=== PATIENT | male | born 1940 | race Caucasian/White ===

== ENCOUNTER 2018-06-29 15:16 | Inpatient (IN) | payer MEDICARE, OTHER ==
--- NOTE | 2018-06-29 16:22 | ED ---
Complex/Multi-Sys Presentation - HPI Summary HPI Summary: Pt is a 77 y/o male who presents to the ED c/o fatigue for the past 4 weeks. He was sent here by his PCP Dr. Lawrence, who performed bloodwork and a CXR. Dr. Lawrence diagnosed with pt with bilateral PNA and requests the pts admission. Pt c/o cough, fever, diaphoresis, fatigue, generalized weakness, and feeling dehydrated. He denies any current pain. Pt had this seasons flu shot. Pt had PNA as a child. - History Of Current Complaint Chief Complaint: EDShortnessOfBreath Time Seen by Provider: 06/29/18 16:02 Hx Obtained From: Patient Onset/Duration: Gradual Onset Timing: Constant Aggravating Factor(s): Nothing Alleviating Factor(s): Nothing Associated Signs And Symptoms: Positive: Weakness, Cough, Fever, Diaphoresis - Allergies/Home Medications Allergies/Adverse Reactions: Allergies Allergy/AdvReac Type Severity Reaction Status Date / Time seasonal Allergy Mild Eyes Uncoded 06/29/18 16:41 Itchy/Swollen/Red/Watery PMH/Surg Hx/FS Hx/Imm Hx Cardiovascular History: Denies: Hx Congestive Heart Failure, Hx Hypertension History: Reports: Hx Kidney Stones Musculoskeletal History: Reports: Hx Arthritis Neurological History: Reports: Hx Seizures - Surgical History Surgery Procedure, Year, and Place: Tonsillectomy Infectious Disease History: No Infectious Disease History: Denies: Traveled Outside the [place] in Last 30 Days - Family History Known Family History: Positive: Cardiac Disease, Other - [place] - Social History Alcohol Use: Occasionally Hx Substance Use: Yes Substance Use Type: Reports: Marijuana Hx Tobacco Use: Yes Smoking Status (MU): Current Some Day Smoker Type: Cigars Review of Systems Positive: Fever, Fatigue, Skin Diaphoresis, Other - Generalized weakness, dehydration Positive: Cough All Other Systems Reviewed And Are Negative: Yes Physical Exam - Summary Physical Exam Summary: GENERAL: Patient is a well-developed and nourished M who is lying comfortable in the stretcher. Patient is not in any acute respiratory distress. HEAD AND FACE: Normocephalic EYES: PERRLA, EOMI x 2. EARS: Hearing grossly intact. MOUTH: Oropharynx within normal limits. NECK: Supple, trachea is midline, no adenopathy, no JVD, no carotid bruit. CHEST: Symmetric, no tenderness at palpation LUNGS: Clear to auscultation bilaterally. No wheezing. Crackles in bilateral bases. CVS: Regular rate and rhythm, S1 and S2 present, no murmurs or gallops appreciated. ABDOMEN: Soft, non-tender. Bowel sounds are normal. No abdominal abnormal pulsations. EXTREMITIES: Full ROM in all major joints, no edema, no cyanosis or clubbing. NEURO: Alert and oriented x 3. No acute neurological deficits. Speech is normal and follows commands. SKIN: Dry and warm Triage Information Reviewed: Yes Vital Signs On Initial Exam: Initial Vitals Temp Pulse Resp BP Pulse Ox 98.7 F 81 20 95/67 91 06/29/18 15:33 06/29/18 15:33 06/29/18 15:33 06/29/18 15:33 06/29/18 15:33 Vital Signs Reviewed: Yes Diagnostics - Vital Signs Vital Signs Temp Pulse Resp BP Pulse Ox 06/29/18 15:33 98.7 F 81 20 95/67 91 - Laboratory Result Diagrams: 06/30/18 08:00 06/30/18 08:00 Lab Statement: Any lab studies that have been ordered have been reviewed, and results considered in the medical decision making process. Complex Multi-Symp Course/Dx Course Of Treatment: Pt is a 77 y/o male who presents to the ED c/o cough, fever , diaphoresis, fatigue, generalized weakness, and feeling dehydrated. Pt was given fluids, IV Rocephin, and IV Zithromax. There was no indication for workup since pt had a workup this morning with Dr. Lawrence. Pt will be admitted with a final dx of bilateral pneumonia. Case discussed with hospitalist, Dr Bauer. I discussed results with patient. The patient agrees with this plan. - Diagnoses Provider Diagnoses: Bilateral pneumonia - Physician Notifications Discussed Care Of Patient With: Eric Bauer Time Discussed With Above Provider: 16:35 Instructed by Provider To: Admit As Inpatient Discharge - Sign-Out/Discharge Documenting (check all that apply): Patient Departure - Admit Patient Received Moderate/Deep Sedation with Procedure: No - Discharge Plan Condition: Stable Disposition: ADMITTED TO [facility] - Billing Disposition and Condition Condition: STABLE Disposition: Admitted to [facility] - Attestation Statements Document Initiated by Scribe: Yes Documenting Scribe: Danielle Graf Provider For Whom Scribe is Documenting (Include Credential): Addie Hui MD Scribe Attestation: I, Danielle Graf, scribed for Addie Hui MD on 06/30/18 at 1826. Scribe Documentation Reviewed: Yes Provider Attestation: The documentation as recorded by the scribe, Danielle Graf accurately reflects the service I personally performed and the decisions made by me, Addie uHi MD Status of Scribe Document: Viewed
[2018-06-29] MEDS ORDERED: NS 0.9% 1000 ML** 1,000 ML IV ONE (16:26)
[2018-06-29] MEDS ORDERED: Azithromycin IV(*) 500 MG in NS 0.9% 250 ML* 250 ML IVPB ONE (16:27)
[2018-06-29] MEDS ORDERED: cefTRIAXone(*) 1 GM in NS 0.9% 50 ML* 50 ML IVPB ONE (16:27)
[2018-06-29 16:55] LABS: Hematocrit 30 % (42-52); Mean Corpuscular HGB Conc 34 g/dl (31-36); Mean Corpuscular Hemoglobin 32 pg (27-31); Mean Corpuscular Volume 95 fL (80-94); Platelet Count 569 10^3/ul (150-450); Red Cell Distribution Width 14 % (10.5-15); White Blood Count 14.9 10^3/ul (3.5-10.8)
[2018-06-29 17:12] LABS: Activated Partial Thrombo Time 26.1 seconds (26.0-36.3); INR 1.11 (0.77-1.02)
[2018-06-29 17:13] LABS: Albumin/Globulin Ratio 0.8 (1-3); Calcium 8.2 mg/dL (8.6-10.3); EGFR African American 128.8 (>60); EGFR Non-African American 106.4 (>60); Globulin 3.9 g/dL (2-4); Total Bilirubin 0.4 mg/dL (0.2-1.0); Total Protein 6.9 g/dL (6.4-8.9)
[2018-06-29 17:15] LABS: Troponin I 0.03 ng/mL (<0.04)
[2018-06-29 17:34] LABS: Influenza A Molecular NEGATIVE (Negative); Influenza B Molecular NEGATIVE (Negative)
[2018-06-29 17:37] LABS: ABS Basophils 0.1 10^3/ul (0-0.2); ABS Eosinophils 0.1 10^3/ul (0-0.6); ABS Lymphocytes 1.2 10^3/ul (1.0-4.8); ABS Monocytes 1.2 10^3/ul (0-0.8); ABS Neutrophils 12.3 10^3/ul (1.5-7.7); ABS Nucleated RBC 0 10^3/ul; Lymphocyte % 8.2 %; Nucleated Red Blood Cells % 0
[2018-06-29 17:59] LABS: Potassium 4.4 mmol/L (3.5-5.0)
[2018-06-29] MEDS ORDERED: GuaiFENesin DM* 5 ML UDC PO PRN (18:37)
[2018-06-29] MEDS ORDERED: Acetaminophen TAB* 325 MG PO PRN (18:38)
[2018-06-29 18:46] LABS: C Reactive Protein 179.76 mg/L (<8.01)
--- NOTE | 2018-06-29 19:32 | HP ---
HISTORY AND PHYSICAL: DATE OF ADMISSION: 06/29/18 ADMITTING PROVIDER: Dr. Eric Bauer. PRIMARY CARE PHYSICIAN: Dr. Antonio Lawrence. CHIEF COMPLAINT: Fevers, generalized fatigue, productive cough, loss of appetite, night sweats, headache. HISTORY OF PRESENT ILLNESS: Codey Maloney is a 77-year-old male with past medical history of seizure disorder, who 4 weeks ago developed cold-like symptoms with a cough productive of phlegm. He lost his appetite and has lost approximately 8 pounds over that time period. He has felt extremely weak. He has been mostly sitting in the chair or lying in bed - even standing to brush his teeth exhausts him, whereas at baseline he walks "very fast" 45 minutes a day, 6 days a week with 3 weightlifting sessions weekly. He denies any chest pain. Denies shortness of breath per se. Does have some discomfort with deep breaths. He has had a fever of 102 four days ago. He is having frequent night sweats. He followed up finally with his primary care provider, Dr. Antonio Lawrence , who was concerned he was way off his baseline (as has known him for 20 years) , did outpatient labs which showed leukocytosis and chest x-ray concerning for bibasilar pneumonia and was referred to the hospital for further evaluation. Here, he again had leukocytosis of 14,900, some mild transaminitis, BNP of 116, influenza swabs were negative, and thrombocytosis of 569 and was referred to the hospitalist service for admission. He has had a colonoscopy last approximately 6 years ago, which did show polyps, and he has been having what sounds like Cologuard since then. PAST MEDICAL HISTORY: Seizure disorder, on Dilantin and phenytoin for 40 years with no seizures since 2 grand mal seizures at that time; hyperlipidemia. FAMILY HISTORY: His father at age 81 of lymphoma/leukemia. Mother at age 94 with dementia. SOCIAL HISTORY: The patient is a former professor at [employer]. He was a cigar smoker for 20 years total, quit a few years ago. He estimates about 2 cigars a day over those 20 years. He drinks 2 to 2-1/2 cocktails every 2 weeks. Does not admit to any drug use. REVIEW OF SYSTEMS: A complete 14-point review of systems negative except as per HPI. He has a mild headache. Denies any nausea or vomiting. No abdominal pain. No skin rashes. No vision changes or neck stiffness. No recent travel. Denies any lower extremity edema or calf tenderness. PHYSICAL EXAMINATION GENERAL APPEARANCE: No acute distress. VITAL SIGNS: Temperature 98.7, heart rate 70s, respiratory rate between 10 and 29, satting 93% to 95% on room air, blood pressure 122/65. HEENT: Normocephalic, atraumatic. Pupils are equal, round, and reactive to light. Extraocular motions intact. No scleral icterus. Moist mucous membranes. LUNGS: Clear to auscultation except for fine crackles at the bilateral bases. No wheezing or rhonchi. CARDIOVASCULAR: Regular rate and rhythm. No murmurs, rubs, or gallops. ABDOMEN: Soft, nontender, nondistended. EXTREMITIES: Warm and well perfused. Trace edema bilaterally. NEURO: Cranial nerves II through XII intact. Moving all extremities. SKIN: No lesions. No rashes. DIAGNOSTIC STUDIES/LAB DATA: White count 14.9, hemoglobin 10.0, hematocrit 30, platelets 569. INR 1.11. Sodium 134, potassium 4.4, chloride 100, carbon dioxide 28, BUN 18, creatinine 0.72, glucose 106. Lactic acid 0.9. AST 83, ALT 100, alk phos 228. Troponin 0.03, BNP 116. Albumin 3.0. Serology: Influenza A and B negative. Imaging: Chest x-ray from outpatient prior to admission, findings consistent with right basilar pneumonia and possible left basilar pneumonia. ASSESSMENT AND PLAN: Codey Maloney is a 77-year-old male with past medical history of seizure disorder, presenting with 4 weeks of generalized weakness, cold- like symptoms, and fever of 102 four days ago, presenting with leukocytosis and imaging concerning for bilateral basilar pneumonia. He has been started on ceftriaxone and azithromycin for community-acquired pneumonia in the emergency room. Continue that, get a sputum culture, follow up blood cultures, Strep pneumoniae and Legionella urinary antigens. Does attest to some urinary frequency, but no dysuria. We will get a urinalysis and follow up the urine culture. He is being admitted to observation status. Continue his antiseizure medications and rosuvastatin. I am adding on a CRP. He is anemic with slight macrocytosis. Reports he has been given B12 injections and then pills without improvement as an outpatient. We do not have any of those labs here, although methylmalonic acid was 0.18 on 02/05/18. We will request further lab records from Dr. Lawrence's office. We will get Physical Therapy to see him. He is actually no CPR, but do intubate and medical surrogate is his , Laisha Maloney. He can eat a heart-healthy diet. [id number]/[facility] #: [id number] MTDD
[2018-06-29] MEDS ORDERED: guaiFENesin ER TAB 600 MG PO SCH (21:00)
[2018-06-29] MEDS: PHENobarbital TAB(*) 100 MG PO SCH (23:10)
[2018-06-29] MEDS: guaiFENesin ER TAB 600 MG PO PRN (23:10)
[2018-06-29] MEDS: Melatonin 3 MG TAB PO PRN (23:10)
[2018-06-29] MEDS: Atorvastatin* 20 MG TAB PO SCH (23:10)
[2018-06-29] MEDS: PHENYTOIN 100 MG PO SCH (23:10)
[2018-06-30] MEDS: Cholecalciferol TAB* 400 UNIT PO SCH (08:33)
[2018-06-30] MEDS: Ascorbic Acid TAB* 500 MG PO SCH (08:33)
[2018-06-30 09:00] LABS: ABS Basophils 0 10^3/ul (0-0.2); ABS Eosinophils 0.1 10^3/ul (0-0.6); ABS Lymphocytes 1.2 10^3/ul (1.0-4.8); ABS Monocytes 0.9 10^3/ul (0-0.8); ABS Neutrophils 7.7 10^3/ul (1.5-7.7); ABS Nucleated RBC 0 10^3/ul; Hematocrit 27 % (42-52); Hemoglobin 9.1 g/dl (14.0-18.0); Lymphocyte % 12.3 %; Mean Corpuscular HGB Conc 34 g/dl (31-36); Mean Corpuscular Hemoglobin 33 pg (27-31); Mean Corpuscular Volume 95 fL (80-94); Mean Platelet Volume 7.8 fL (7.4-10.4); Nucleated Red Blood Cells % 0; Platelet Count 495 10^3/ul (150-450); Red Cell Distribution Width 13 % (10.5-15); White Blood Count 9.9 10^3/ul (3.5-10.8)
[2018-06-30 09:16] LABS: BUN/Creatinine Ratio 19.7 (8-20); EGFR African American 142.4 (>60); EGFR Non-African American 117.7 (>60); Potassium 4.1 mmol/L (3.5-5.0)
--- NOTE | 2018-06-30 13:36 | PN ---
Subjective Date of Service: 06/30/18 Interval History: Pt is admitted for bilateral basilar pneumonia being treated with Ceftriaxone, Azithromycin. Pt states that he is feeling better today, stating that this is the first time that he has felt hungry in approximately 4 weeks. Over last 4 weeks, pt states that he has experienced night sweats, weakness, fatigue, and 8 # weight loss. He states that his cough has decreased since admission, but he is still producing sputum. Positive for subjective fevers, although none documented. Denies CP, SOB, abd pain, n/v/d/c, extremity pain. Denies swollen glands. Objective Active Medications: Acetaminophen (Tylenol Tab*) 650 mg PO Q6H PRN Ascorbic Acid (Vitamin C Tab*) 500 mg PO DAILY AYLIN Atorvastatin Calcium (Lipitor*) 20 mg PO BEDTIME AYLIN; Protocol Cetirizine HCl (Zyrtec*) 10 mg PO QPM AYLIN; Protocol Cholecalciferol (Vitamin D Tab*) 400 unit PO DAILY AYLIN Guaifenesin (Mucinex*) 600 mg PO BID PRN Guaifenesin/Dextromethorphan (Robitussin Dm*) 5 ml PO Q6H PRN Ceftriaxone Sodium 1 gm/ (Sodium Chloride) 50 mls @ 200 mls/hr IVPB Q24H AYLIN Azithromycin 500 mg/ Sodium (Chloride) 250 mls @ 250 mls/hr IVPB Q24H AYLIN Melatonin (Melatonin) 3 mg PO BEDTIME PRN Phenobarbital (Phenobarbital Tab(*)) 100 mg PO 2000 AYLIN Phenytoin Sodium (Dilantin Cap(*)) 200 mg PO BEDTIME AYLIN Vital Signs: Temp Pulse Resp BP Pulse Ox 98.4 F 66 16 118/58 95 06/30/18 11:46 06/30/18 11:46 06/30/18 11:46 06/30/18 11:46 06/30/18 11:46 Oxygen Devices in Use Now: None Appearance: Pt is sitting up in bed. He is well developed, well nourished, thin white male who does not appear ill and is in no acute distress. Eyes: No Scleral Icterus, PERRLA Ears/Nose/Mouth/Throat: NL Teeth, Lips, Gums, Clear Oropharnyx, Mucous Membranes Moist Neck: NL Appearance and Movements; NL JVP, Trachea Midline, No Thyroid Enlargement, Masses Respiratory: Symmetrical Chest Expansion and Respiratory Effort, Clear to Auscultation Cardiovascular: NL Sounds; No Murmurs; No JVD, RRR, No Edema Abdominal: - - Abdomen is firm, nontender, without distention. There are 2 prominent palpable masses in RUQ and LUQ that do not change size with valsalva. Lymphatic: No Cervical Adenopathy, No Auricular Adenopathy Extremities: No Edema, No Clubbing, Cyanosis Neurological: Alert and Oriented x 3 Result Diagrams: 06/30/18 08:00 06/30/18 08:00 Microbiology and Other Data: Microbiology 06/29/18 16:55 Influenza Types A,B Antigen - Final Nasal Specimen received for Influenza A/B Molecular testing Assess/Plan/Problems-Billing Assessment: Pt is a 77yom with PMHx seizure disorder and HLD who is admitted to the hospital for bibasilar pneumonia. - Patient Problems (1) Bilateral pneumonia Comment: -No documented fevers, decreased cough, increased appetite -Urine for legionella, strep pneumo ordered -Continue treatment with ceftriaxone, azithromycin -Continue symptomatic treatment (2) Abnormal blood cell count Comment: -Thrombocytosis, anemia -Consulted Dr. Newton (3) Abdominal mass Comment: -Palpable abdominal abnormality, elevated LFTs -CT CAP with contrast ordered (4) DVT prophylaxis Comment: -Heparin ordered (5) Full code status Status and Disposition: Inpatient. Discharge when medically stable.
[2018-06-30] MEDS: cefTRIAXone(*) 1 GM in NS 0.9% 50 ML* 50 ML IVPB SCH (16:13)
[2018-06-30] MEDS: Azithromycin IV(*) 500 MG in NS 0.9% 250 ML* 250 ML IVPB SCH (16:49)
[2018-06-30] MEDS: Cetirizine* 10 MG TAB PO SCH (16:51)
[2018-06-30] MEDS ORDERED: Iohexol 300* (CONTRAST) 10 ML SDV IV ONE (19:00)
[2018-06-30] MEDS: Atorvastatin* 20 MG TAB PO SCH (22:09)
[2018-06-30] MEDS: Heparin VIAL(*) 5000 UNITS/ML VIAL (FIVE THOUSAND) SUBCUT SCH (22:10)
[2018-06-30] MEDS: PHENobarbital TAB(*) 100 MG PO SCH (22:10)
[2018-06-30] MEDS: PHENYTOIN 100 MG PO SCH (22:13)
[2018-06-30] MEDS: guaiFENesin ER TAB 600 MG PO PRN (22:28)
--- NOTE | 2018-07-01 01:45 | CONS ---
CC: Dr. Antonio Lawrence; Dr. Newton * MEDICAL ONCOLOGY/HEMATOLOGY CONSULTATION NOTE: DATE OF CONSULT: 06/30/18 REASON FOR CONSULT: Night sweats, weight loss, anemia, and thrombocythemia. HISTORY OF PRESENT ILLNESS: Mr. Maloney is a 77-year-old male who reports approximately a 4-week history of progressive symptoms. He has developed drenching night sweats to the point that he needs to put towels down on his bed. He has had fevers as high as 102 intermittently over this period of time. His appetite has been extremely poor. He has had early satiety and about a 8- pound weight loss in 4 weeks. Whereas previously, he was extremely active, weight lifting several times per week, and walking at a fast clip almost every day for almost an hour. He recently has had difficulty doing any activities. He gets winded and fatigued even standing for short periods of time. He was seen at [facility] and found to have an elevated white count and a chest x-ray concerning for bibasilar pneumonia. Because of this, he was sent to emergency room for further workup. He was admitted by the hospitalist service on 06/29/18. Laboratory studies on admission included a white count of 14,900, H and H 30/10, platelet count 569,000. Chemistry studies were significant for mildly elevated LFTs and AST of 83, ALT 100, alk phos 228. Serology was negative for influenza A and influenza B. A chest x-ray revealed right basilar pneumonia and possible left basilar pneumonia as well. To this point, cultures have been negative. He was started empirically on antibiotics at the time of admission. Currently being treated with ceftriaxone 1 g daily and azithromycin 500 mg daily. He reports since admission very little change in his overall condition. PAST MEDICAL HISTORY: No hypertension, diabetes, [place], or CVA. History of distant seizure disorder, having had 2 episodes of seizures in his life, most recently at 40 years ago while in [place] and has been on Dilantin at low dose since. No further seizures since placed on Dilantin. Hyperlipidemia. Hospitalization for kidney stones in the past without need for surgery. No surgeries. MEDICATIONS: Medications at the time of admission included only: 1. Dilantin 200 mg a day. 2. Atorvastatin. Current medications include: 1. Ceftriaxone and azithromycin as discussed above. 2. Robitussin DM p.r.n. 3. Tylenol p.r.n. 4. Atorvastatin. 5. Phenobarb 100 mg at h.s. 6. Guaifenesin 600 mg b.i.d. p.r.n. 7. Melatonin 3 mg at h.s. p.r.n. 8. Ascorbic acid 500 mg daily. 9. Cholecalciferol 400 mg daily. 10. Cetirizine 10 mg q.8 hours p.r.n. 11. Heparin 5000 units subcutaneous q.8 hours. FAMILY HISTORY: Father at 81 of some type of lymphoma or leukemia. Paternal grandfather of unknown type of cancer in his late 60s. Cousin with brain cancer. Mother at 94 with dementia. Cardiac issues in multiple family members including 3 half brothers having had CABGs and lots of other cardiac issues on his mother's side. 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 He has been retired for approximately 6 years. Cigars for 20 years, quitting years ago, 2 cigars per day for over 20 years. Alcohol, 2 to 3 cocktails every couple of weeks. Lives with his . His children and grandchildren live next door and are essentially part of the larger household. REVIEW OF SYSTEMS: Rare headaches. No significant nausea or vomiting. Appetite has been poor and early satiety as noted above. No significant complaints of pain in the abdomen or in the extremities or back. No significant neurologic complaints. No significant changes in bowel or bladder habits. No significant heart burn or reflux. PHYSICAL EXAM: A 77-year-old male in no acute distress. Vital Signs: Blood pressure 133/68, pulse 62, currently afebrile, having had no fevers higher than 99.3 since admission. HEENT: PERRL, EOMI. No erythema or exudates. Moist mucous membranes. No scleral icterus. No palpable cervical or supraclavicular adenopathy. Shotty bilateral right greater than left axillary adenopathy up to approximately 1 cm. No inguinal adenopathy. Lungs: Clear. Heart: Regular rate and rhythm without murmurs, rubs, or gallops. Abdomen: Soft, nontender without masses, guarding, or rebound. Liver is slightly prominent. There is no splenomegaly. Extremities: No clubbing, cyanosis, or edema. Back: No CVA or spinal tenderness. Neurologic Exam: Cranial nerves II through XII are intact. Motor is 5/5. There are no focal deficits. DIAGNOSTIC STUDIES/LAB DATA: Laboratory studies on admission as discussed above. Since admission, his white count has dropped to 9,900, H and H is currently 27/9.1 and slightly lower following hydration. Platelet count of 495, 000. Differential is mostly neutrophils. Chemistry studies: Sodium 136, potassium 4.1, chloride 102, bicarb 27, BUN 15, creatinine 0.66, glucose 97. AST 83, ALT 100 without previous comparisons available, alk phos of 228. Dilantin level when most recently checked in December was 5.4 on his current dosing. IMPRESSION: A 77-year-old male with documented recent pneumonia. He has had symptoms over the past 4 weeks preceding diagnosis of pneumonia suspicious for either malignancy or prior infection. These include drenching night sweats requiring some towels on his bed, fever to 102, 8-pound weight loss over 4-week period, early satiety, and extreme fatigue. On physical exam, there is no obvious pathologic adenopathy or splenomegaly. His LFTs are abnormal. He does have significant anemia along with thrombocytosis. CT scan of the chest, abdomen and pelvis has been ordered given his symptoms. This would be suspicious for development of some type of lymphoma or other potential malignancies. Once results are available from the CT scan, further recommendations will follow. If he persists with anemia and thrombocytosis, it would important to obtain prior labs from Dr. Lawrence's office to see if these are new. LDH has been added along with uric acid and serum protein electrophoresis to his current laboratory orders. [id number]/[facility] #: [id number] [facility]
[2018-07-01] MEDS: Heparin VIAL(*) 5000 UNITS/ML VIAL (FIVE THOUSAND) SUBCUT SCH ×3 (05:47→22:34)
[2018-07-01 06:22] LABS: ABS Basophils 0 10^3/ul (0-0.2); ABS Eosinophils 0.1 10^3/ul (0-0.6); ABS Lymphocytes 1.4 10^3/ul (1.0-4.8); ABS Monocytes 0.7 10^3/ul (0-0.8); ABS Neutrophils 7.3 10^3/ul (1.5-7.7); ABS Nucleated RBC 0 10^3/ul; Hematocrit 30 % (42-52); Hemoglobin 10.2 g/dl (14.0-18.0); Lymphocyte % 14.4 %; Mean Corpuscular HGB Conc 34 g/dl (31-36); Mean Corpuscular Hemoglobin 32 pg (27-31); Mean Corpuscular Volume 95 fL (80-94); Mean Platelet Volume 7.7 fL (7.4-10.4); Nucleated Red Blood Cells % 0.1; Platelet Count 565 10^3/ul (150-450); Red Blood Count 3.19 10^6/ul (4.00-5.40); Red Cell Distribution Width 14 % (10.5-15); White Blood Count 9.6 10^3/ul (3.5-10.8)
[2018-07-01 06:46] LABS: ALT 72 U/L (7-52); AST 47 U/L (13-39); Albumin 2.7 g/dL (3.2-5.2); Albumin/Globulin Ratio 0.8 (1-3); Alkaline Phosphatase 198 U/L (34-104); Anion Gap 7 mmol/L (2-11); BUN/Creatinine Ratio 17.6 (8-20); Blood Urea Nitrogen 12 mg/dL (6-24); CO2 Carbon Dioxide 29 mmol/L (22-32); Calcium 8.3 mg/dL (8.6-10.3); Chloride 101 mmol/L (101-111); EGFR African American 137.6 (>60); EGFR Non-African American 113.7 (>60); Globulin 3.5 g/dL (2-4); Glucose 102 mg/dL (70-100); Sodium 137 mmol/L (135-145); Total Protein 6.2 g/dL (6.4-8.9); Uric Acid 3.8 mg/dL (4.4-7.6)
[2018-07-01 07:10] LABS: LDH 127 U/L (140-271)
[2018-07-01] MEDS: Cholecalciferol TAB* 400 UNIT PO SCH (08:41)
[2018-07-01] MEDS: Ascorbic Acid TAB* 500 MG PO SCH (08:41)
[2018-07-01] MEDS ORDERED: NS 0.9% 1000 ML** 1,000 ML IV SCH ×2 (12:15)
--- NOTE | 2018-07-01 14:21 | PN ---
Subjective Date of Service: 07/01/18 Interval History: Pt is feeling better today. He continues to have a productive cough. He states that he has only had one bout of night sweats since admission, which occurred yesterday morning. He has been eating more and has been drinking, but is not pushing fluids. He admits to having more energy and is looking forward to taking a walk this afternoon. Urine output has not increased or decreased from his baseline. He denies CP, SOB, abd pain, n/v/d/c, extremity pain, calf tenderness, swelling. Objective Active Medications: Acetaminophen (Tylenol Tab*) 650 mg PO Q6H PRN Ascorbic Acid (Vitamin C Tab*) 500 mg PO DAILY AYLIN Atorvastatin Calcium (Lipitor*) 20 mg PO BEDTIME AYLIN; Protocol Cetirizine HCl (Zyrtec*) 10 mg PO QPM AYLIN; Protocol Cholecalciferol (Vitamin D Tab*) 400 unit PO DAILY AYLIN Guaifenesin (Mucinex*) 600 mg PO BID PRN Guaifenesin/Dextromethorphan (Robitussin Dm*) 5 ml PO Q6H PRN Heparin Sodium (Porcine) (Heparin Vial(*)) 5,000 units SUBCUT Q8HR AYLIN Ceftriaxone Sodium 1 gm/ (Sodium Chloride) 50 mls @ 200 mls/hr IVPB Q24H AYLIN Azithromycin 500 mg/ Sodium (Chloride) 250 mls @ 250 mls/hr IVPB Q24H AYLIN Sodium Chloride (Ns 0.9% 1000 Ml) 1,000 mls @ 100 mls/hr IV PER [facility] Melatonin (Melatonin) 3 mg PO BEDTIME PRN Phenobarbital (Phenobarbital Tab(*)) 100 mg PO 2000 AYLIN Phenytoin Sodium (Dilantin Cap(*)) 200 mg PO BEDTIME AYLIN Vital Signs: Temp Pulse Resp BP Pulse Ox 97.5 F 65 18 125/68 97 07/01/18 11:31 07/01/18 11:31 07/01/18 11:31 07/01/18 11:31 07/01/18 11:31 Oxygen Devices in Use Now: None Appearance: Pt is sitting up in bed. He is pale, but appears well, in no acute distress. Eyes: No Scleral Icterus, PERRLA Ears/Nose/Mouth/Throat: NL Teeth, Lips, Gums, Clear Oropharnyx, Mucous Membranes Moist Neck: NL Appearance and Movements; NL JVP, Trachea Midline, No Thyroid Enlargement, Masses Respiratory: Symmetrical Chest Expansion and Respiratory Effort, Clear to Auscultation, - - Breath sounds decreased b/l, without wheeze, rales, rhonchi Cardiovascular: NL Sounds; No Murmurs; No JVD, RRR, No Edema Abdominal: NL Sounds; No Tenderness; No Distention, No Hepatosplenomegaly, - - Abdominal muscles are palpable. Lymphatic: No Cervical Adenopathy Neurological: Alert and Oriented x 3 Result Diagrams: 07/01/18 05:41 07/01/18 05:41 Microbiology and Other Data: Microbiology 06/29/18 16:55 Influenza Types A,B Antigen - Final Nasal Specimen received for Influenza A/B Molecular testing Assess/Plan/Problems-Billing Assessment: Pt is a 77yom with PMHx seizure disorder and HLD who is admitted to the hospital for bibasilar pneumonia. - Patient Problems (1) Bilateral pneumonia Comment: -No documented fevers, decreased cough, increased appetite -Urine for legionella negative, strep pneumo positive -Continue treatment with ceftriaxone, azithromycin -Continue symptomatic treatment (2) Abnormal blood cell count Comment: -Thrombocytosis, anemia -Consulted Dr. Newton (3) Abdominal mass Comment: -Palpable abdominal abnormality, elevated LFTs -CT CAP showed multifocal pna, Bosniak type I renal cyst requiring no follow up (4) DVT prophylaxis Comment: -Heparin ordered (5) Full code status Status and Disposition: Inpatient. Discharge when medically stable.
[2018-07-01 14:26] LABS: % Iron Saturation 24 % (15-55); Iron 40 ug/dL (50-212); Total Iron Binding Capacity 169 mcg/dL (250-450); Transferrin 121 mg/dL (203-362)
--- NOTE | 2018-07-01 14:40 | PN ---
Progress Note - Progress Note Date of Service: 07/01/18 SOAP: Subjective: [No new concerns. CT completed yesterday.] Objective: [ Laboratory Results - last 24 hr 07/01/18 07/01/18 05:41 05:41 WBC 9.6 RBC 3.19 L Hgb 10.2 L Hct 30 L MCV 95 H MCH 32 H MCHC 34 RDW 14 Plt Count 565 H D MPV 7.7 Neut % (Auto) 76.4 Lymph % (Auto) 14.4 [place]urel % (Auto) 7.8 Eos % (Auto) 1.0 Baso % (Auto) 0.4 Absolute Neuts (auto) 7.3 Absolute Lymphs (auto) 1.4 Absolute Monos (auto) 0.7 Absolute Eos (auto) 0.1 Absolute Basos (auto) 0 Absolute Nucleated RBC 0 Nucleated RBC % 0.1 Sodium 137 Potassium 4.0 Chloride 101 Carbon Dioxide 29 Anion Gap 7 BUN 12 Creatinine 0.68 Est GFR ( Amer) 137.6 Est GFR (Non-Af Amer) 113.7 BUN/Creatinine Ratio 17.6 Glucose 102 H Uric Acid 3.8 L Calcium 8.3 L Iron 40 L TIBC 169 L % Saturation 24 Unsat Iron Binding < 154 Transferrin 121 L Total Bilirubin 0.30 AST 47 H ALT 72 H Alkaline Phosphatase 198 H Lactate Dehydrogenase 127 L Total Protein 6.2 L Albumin 2.7 L Globulin 3.5 Albumin/Globulin Ratio 0.8 L Acetaminophen (Tylenol Tab*) 650 mg PO Q6H PRN PRN Reason: FEVER/PAIN Ascorbic Acid (Vitamin C Tab*) 500 mg PO DAILY AYLIN Last Admin: 07/01/18 08:41 Dose: 500 mg Atorvastatin Calcium (Lipitor*) 20 mg PO BEDTIME AYLIN; Protocol Last Admin: 06/30/18 22:09 Dose: 20 mg Cetirizine HCl (Zyrtec*) 10 mg PO QPM AYLIN; Protocol Last Admin: 06/30/18 16:51 Dose: 10 mg Cholecalciferol (Vitamin D Tab*) 400 unit PO DAILY AYLIN Last Admin: 07/01/18 08:41 Dose: 400 unit Guaifenesin (Mucinex*) 600 mg PO BID PRN PRN Reason: COUGH Last Admin: 06/30/18 22:28 Dose: 600 mg Guaifenesin/Dextromethorphan (Robitussin Dm*) 5 ml PO Q6H PRN PRN Reason: COUGH Heparin Sodium (Porcine) (Heparin Vial(*)) 5,000 units SUBCUT Q8HR [facility] Last Admin: 07/01/18 13:32 Dose: 5,000 units Ceftriaxone Sodium 1 gm/ (Sodium Chloride) 50 mls @ 200 mls/hr IVPB Q24H [facility] Last Admin: 06/30/18 16:13 Dose: 200 mls/hr Azithromycin 500 mg/ Sodium (Chloride) 250 mls @ 250 mls/hr IVPB Q24H [facility] Last Admin: 06/30/18 16:49 Dose: 250 mls/hr Sodium Chloride (Ns 0.9% 1000 Ml) 1,000 mls @ 100 mls/hr IV PER RATE [facility] Stop: 07/01/18 22:14 Last Admin: 07/01/18 13:32 Dose: 100 mls/hr Melatonin (Melatonin) 3 mg PO BEDTIME PRN PRN Reason: SLEEP Last Admin: 06/29/18 23:10 Dose: 3 mg Phenobarbital (Phenobarbital Tab(*)) 100 mg PO 1999 [facility] Last Admin: 06/30/18 22:10 Dose: 100 mg Phenytoin Sodium (Dilantin Cap(*)) 200 mg PO BEDTIME [facility] Last Admin: 06/30/18 22:13 Dose: 200 mg Vital Signs: Temp Pulse Resp BP Pulse Ox 97.5 F 65 18 125/68 97 07/01/18 11:31 07/01/18 11:31 07/01/18 11:31 07/01/18 11:31 07/01/18 11:31 Exam: Gen: Well appearing 77 yo male in [facility], accompanied by his ] Assessment: [77 yo male with a history of a seizure disorder who was admitted with PNA. Heme/onc consultation requested for palpable abdominal abnormality with anemia and thrombocytosis. Patient reported night sweats and weight loss over the last several weeks. CT scan completed yesterday demonstrated a multifocal PNA with positive S pneumo antigen. No abnormal LAD or focal masses. LDH is WNL. Per discussion with the patient his anemia seems to be long standing and he has been recommended to take B12 shots in the past. Last colonoscopy 2013 with a hyperplastic polyp and patient reports he was negative for occult blood on annual screen within the last month or so. His mild thrombocytosis and recent B symptoms could be explained by his PNA. There are no signs that these symptoms are related to a malignancy at this time. Regarding his anemia, this seems to be chronic with negative screening for colon CA. His antiepileptic drugs may cause a macrocytic anemia as well. Plan: - check iron, B12 and folate studies - obtain records from Dr Lawrence to evaluate acuity of anemia Dispo: no need for further oncologic evaluation at this time unless symptoms do not resolve following treatment for his acute illness
[2018-07-01 14:51] LABS: Folate > 20.00 ng/mL (>3.99)
[2018-07-01] MEDS: cefTRIAXone(*) 1 GM in NS 0.9% 50 ML* 50 ML IVPB SCH (16:34)
[2018-07-01] MEDS: Azithromycin IV(*) 500 MG in NS 0.9% 250 ML* 250 ML IVPB SCH (18:06)
[2018-07-01] MEDS: Cetirizine* 10 MG TAB PO SCH (18:06)
[2018-07-01] MEDS: Atorvastatin* 20 MG TAB PO SCH (22:33)
[2018-07-01] MEDS: PHENYTOIN 100 MG PO SCH (22:33)
[2018-07-01] MEDS: Melatonin 3 MG TAB PO PRN (22:34)
[2018-07-01] MEDS: PHENobarbital TAB(*) 100 MG PO SCH (22:34)
[2018-07-01] MEDS: guaiFENesin ER TAB 600 MG PO PRN (22:34)
[2018-07-02] MEDS: Heparin VIAL(*) 5000 UNITS/ML VIAL (FIVE THOUSAND) SUBCUT SCH ×2 (05:22→13:08)
[2018-07-02 06:23] LABS: ABS Basophils 0 10^3/ul (0-0.2); ABS Eosinophils 0.1 10^3/ul (0-0.6); ABS Lymphocytes 1.5 10^3/ul (1.0-4.8); ABS Monocytes 0.8 10^3/ul (0-0.8); ABS Neutrophils 5.3 10^3/ul (1.5-7.7); ABS Nucleated RBC 0 10^3/ul; Eosinophil % 1.3 %; Hematocrit 29 % (42-52); Hemoglobin 10.1 g/dl (14.0-18.0); Lymphocyte % 19.3 %; Mean Corpuscular HGB Conc 35 g/dl (31-36); Mean Corpuscular Hemoglobin 32 pg (27-31); Mean Corpuscular Volume 94 fL (80-94); Mean Platelet Volume 7.2 fL (7.4-10.4); Nucleated Red Blood Cells % 0; Platelet Count 631 10^3/ul (150-450); Red Blood Count 3.13 10^6/ul (4.00-5.40); Red Cell Distribution Width 13 % (10.5-15); White Blood Count 7.7 10^3/ul (3.5-10.8)
[2018-07-02 06:40] LABS: Albumin 2.7 g/dL (3.2-5.2); Albumin/Globulin Ratio 0.8 (1-3); BUN/Creatinine Ratio 16.4 (8-20); Calcium 8.3 mg/dL (8.6-10.3); EGFR African American 139.9 (>60); EGFR Non-African American 115.6 (>60); Globulin 3.3 g/dL (2-4); Potassium 4.2 mmol/L (3.5-5.0); Total Bilirubin 0.3 mg/dL (0.2-1.0)
[2018-07-02 06:56] LABS: TSH (Thyroid Stimulating Horm) 4.52 mcIU/mL (0.34-5.60)
[2018-07-02] MEDS: Cholecalciferol TAB* 400 UNIT PO SCH (08:08)
[2018-07-02] MEDS: Ascorbic Acid TAB* 500 MG PO SCH (08:08)
[2018-07-02 16:17] VITALS: BP 110/55
[2018-07-02] MEDS: cefTRIAXone(*) 1 GM in NS 0.9% 50 ML* 50 ML IVPB SCH (16:27)
[2018-07-03 15:59] LABS: Albumin/Globulin Ratio 0.51; Gamma Globulin 0.9 g/dL (0.6-1.6); Total Protein(PEP) 5.9 g/dL (6.3 - 7.9)
--- NOTE | 2018-07-05 03:40 | DS ---
DISCHARGE SUMMARY: DATE OF ADMISSION: 06/29/18 DATE OF DISCHARGE: 07/02/18 PRIMARY CARE PROVIDER: Dr. Antonio Lawrence. ATTENDING PHYSICIAN: Dr. Yadira Irvin * (dictated by NATALI Dao). PRIMARY DIAGNOSIS: Bilateral pneumonia. SECONDARY DIAGNOSES: 1. Seizure disorder. 2. Hyperlipidemia. STUDIES WHILE IN THE HOSPITAL: Chest x-ray, 06/29/18, impression: Findings consistent with right basilar pneumonia and possible left basilar pneumonia. Chest, abdomen, and pelvis CT, 06/30/18, impression: Multifocal pneumonia, Bosniak type 1 renal cyst, no followup indicated. DISCHARGE MEDICATIONS: Home medications: 1. Rosuvastatin 20 mg p.o. at bedtime. 2. Cholecalciferol 400 units p.o. daily. 3. Ascorbic acid 500 mg p.o. daily. 4. Multivitamin/minerals 1 tab p.o. daily. 5. Fexofenadine 180 mg p.o. daily. 6. Phenobarbital 97.2 mg p.o. daily. 7. Phenytoin 200 mg p.o. at bedtime. New home medications: 1. Cefuroxime 500 mg p.o. b.i.d. x5 days, starting tomorrow. 2. Azithromycin 250 mg p.o. b.i.d. x3 days, starting today. HISTORY OF PRESENT ILLNESS/HOSPITAL COURSE: Mr. Maloney is a 77-year-old male with past medical history as described above who presented to the ER on 10/10 with complaints of cold-like symptoms, fatigue, productive cough, loss of appetite, an 8-pound weight loss, and weakness over the last 4 weeks. He is a very active gentleman. He walks at a brisk space for approximately 45 minutes a day every day and has 3 sessions of weightlifting weekly. He has been unable to sustain his regular activity for approximately 4 weeks now since these symptoms developed. He states that he has been having night sweats as well with a fever of 102 four days ago. He sought consult from his primary care provider, Dr. Lawrence, regarding these symptoms. He had a CBC drawn which revealed leukocytosis. Chest x-ray was performed and was concerning for bibasilar pneumonia. He was referred to the hospital. In the hospital, more blood work was performed and he again had leukocytosis, transaminitis, and thrombocytosis. He was found to have negative influenza swabs. Hospitalist team was asked to consult and admitted the patient for bilateral pneumonia with treatment with ceftriaxone and azithromycin. While in the hospital, the patient was continued on the antibiotics. His urine revealed that Strep pneumoniae was the likely cause of the pneumonia. Hematology /Oncology was consulted regarding fatigue, 8-pound weight loss, and abnormal blood counts. CT of chest, abdomen, and pelvis with contrast was also ordered to evaluate the patient. Iron studies, vitamin B12, folate, lactate dehydrogenase, and uric acid were drawn and evaluated. Serum protein electrophoresis was also drawn and is currently pending. Thrombocytosis is likely an acute-phase reactant due to the patient's bilateral pneumonia. Constitutional symptoms are likely a result of illness as well. CT scan revealed no abnormality. His anemia is likely secondary to use of antiepileptic drugs which may cause a macrocytic anemia. Of note is that the patient's last colonoscopy was in 2012 and revealed a hyperplastic polyp, and he has been negative for occult blood on annual screening, last performed approximately 1 month ago. On the day of discharge, Mr. Maloney states that he has had 2 night sweats in the last 48 hours. There are no documented fevers. The patient states he is feeling better. He continues to have a productive cough, but it is less severe than when he was initially admitted. He continues to complain of fatigue, weakness. He has experienced no weight loss while in the hospital. His appetite has increased. He denies chest pain, shortness of breath, abdominal pain, nausea, vomiting, diarrhea, constipation, pain or swelling in the extremities. Mr. Maloney is stable for discharge. PHYSICAL EXAMINATION: Vital signs are temperature of 97.7 temporally, heart rate of 63, respirations 16, oxygen saturation 93%, blood pressure 115/70. General: Mr. Maloney is a well-developed, well-nourished, elderly white male, who is sitting up in bed, in no acute distress. He appears his stated age. He appears tired, but healthy. HEENT: Visual peace are grossly intact. Pupils are equally round and reactive to light. Extraocular movements are intact. Sclerae are without icterus. Oral mucous membranes are moist and without lesion. Pharynx is clear. Neck with full range of motion. Thyroid not palpable. Trachea is at midline. No cervical, preauricular, auricular, or submandibular lymphadenopathy. Respiratory: Symmetrical chest expansion with no use of accessory muscles. Lungs: Lung sounds are diminished. No rhonchi, wheezes, or rales. Cardiovascular: Regular rate and rhythm. S1, S2 present. No murmurs, rubs, or gallops. No JVD. Abdomen: Bowel sounds in all quadrants. Abdomen is soft and nontender to palpation. No hepatosplenomegaly. Abdominal muscles palpable. Extremities: Skin is warm and smooth bilaterally. No edema. No clubbing or cyanosis. Radial and pedal pulses 2+ bilaterally. Neuro: Awake, alert, oriented x3. Grossly intact with no focal neurological deficits. The patient moves all extremities. Steady gait with no impairment. DISCHARGE PLAN: Mr. Maloney will be discharged home. ACTIVITY: As tolerated. DIET: Heart-healthy, push fluids. MEDICATIONS: As above. EDUCATION: 1. Start azithromycin today and continue for 3 days. 2. Start cefuroxime tomorrow, take 1 pill twice a day and continue for 5 days. 3. Follow up with primary care physician in 4 to 7 days. Consider repeat CBC and CMP to monitor liver enzymes and platelets. 4. Results of serum protein electrophoresis are still pending. Please see Dr. Lawrence, PCP, for results and necessary followup. 5. Follow up with Dr. Newton on an as-needed basis if constitutional symptoms persist. 6. Return to the ER or nearest hospital if you experience any worsening of symptoms, shortness of breath, lightheadedness, dizziness, chest discomfort, high fevers, chills, night sweats, loss of consciousness, or any other worrisome signs or symptoms. This is a summarized report of a complex medical history and hospital stay. For further details, please see the entire medical record. TIME SPENT: Approximately 50 minutes was spent on this discharge, greater than half of that time spent [id number] with the patient discussing discharge plans and instructions. NATALI TERRAZAS [id number]/[facility] #: [id number] HARRY
== END 2018-07-02 17:10 | disposition home or self-care (01) | DRG 195 ==
LOC: ED 15:16 → MEDTELE 20:08
PROVIDERS: ADMIT Internal Medicine; ATTEND Internal Medicine
DX: J13 Pneumonia due to Streptococcus pneumoniae (principal); G40.909 Epilepsy, unspecified, not intractable, without status epilepticus; D64.9 Anemia, unspecified; E78.5 Hyperlipidemia, unspecified; D47.3 Essential (hemorrhagic) thrombocythemia; R35.0 Frequency of micturition; R19.00 Intra-abdominal and pelvic swelling, mass and lump, unspecified site; R61 Generalized hyperhidrosis; R63.4 Abnormal weight loss; Z68.22 Body mass index [BMI] 22.0-22.9, adult; Z87.891 Personal history of nicotine dependence; Z80.7 Family history of other malignant neoplasms of lymphoid, hematopoietic and related tissues; Z80.6 Family history of leukemia; Z82.49 Family history of ischemic heart disease and other diseases of the circulatory system; Z80.8 Family history of malignant neoplasm of other organs or systems
CPT/HCPCS: 36415; 71260; 74177; 80048; 80053; 82607; 82728; 82746; 83540; 83550; 83605; 83615; 83880; 84155; 84165; 84443; 84484; 84550; 85025; 85610; 85730; 86140; 87040; 87899; 99232; 99284; A9270-GY; G8978-GP-CI; G8979-GP-CI; G8980-GP-CI; J0456; J0696; J1644; Q9967

== ENCOUNTER 2018-09-30 08:31 | Day surgery (SDC) | payer MEDICARE, OTHER ==
[~2018-09-30 08:31] MED LIST: Buffered Lidocaine 1% SYRIN* 1 ML/SYRINGE INTRADERM ONE; Famotidine IV* 10 MG/ML 2 ML (20 mg) IV ONE; Famotidine IV* 10 MG/ML 2 ML (20 mg) ONE; Lactated Ringers 1000 ML Bag* 1,000 ML IV SCH; ceFAZolin 2 GM PREMIX in ORs 2 GM/50 ML BAG IVPB ONE
[2018-09-30] MEDS ORDERED: Propofol* 10 MG/ML 20 ML BTL ONE (10:18)
[2018-09-30] MEDS ORDERED: Midazolam* 1 MG/ML 10 ML VIAL (10 MG) ONE (10:18)
[2018-09-30] MEDS ORDERED: Dexamethasone IV* 4 MG/ML 1 ML (4 MG) ONE (10:18)
[2018-09-30] MEDS ORDERED: Lidocaine 2% PF * 5 ML VIAL ONE ×2 (10:18→10:19)
[2018-09-30] MEDS ORDERED: Ondansetron INJ* 2 MG/ML VIAL ONE (10:18)
[2018-09-30] MEDS ORDERED: fentaNYL* 50 MCG/ML 2 ML VIAL (100 MCG VIAL) ONE ×2 (10:18→12:59)
[2018-09-30] MEDS ORDERED: Ropivacaine (OR use only) 2 MG/ML 10 ML ONE (10:19)
[2018-09-30] MEDS ORDERED: Bupivacaine 0.5% SDV PF* 30ML VIAL ONE (10:19)
[2018-09-30] MEDS ORDERED: Sodium Chloride 0.9%* 20 ML ONE (10:25)
[2018-09-30] MEDS ORDERED: Bupivacaine 0.25% SDV PF* 10 ML VIAL INJ ONE (11:19)
[2018-09-30] MEDS ORDERED: KETAMINE HCL* 50 MG/ML 10 ML VIAL ONE (12:06)
[2018-09-30] MEDS ORDERED: Ondansetron INJ* 2 MG/ML VIAL IV PRN (13:10)
[2018-09-30] MEDS ORDERED: HYDROcodone/ACETAMIN 5-325 MG* 1 TAB PO PRN (13:10)
[2018-09-30] MEDS ORDERED: fentaNYL* 50 MCG/ML 2 ML VIAL (100 MCG VIAL) IV PRN (13:10)
[2018-09-30] MEDS ORDERED: Naloxone* 0.4 MG/ML 1 ML VIAL IV PRN (13:10)
[2018-09-30 16:51] VITALS: BP 107/65
== END 2018-09-30 17:33 | disposition home or self-care (01) ==
LOC: OR 08:31
PROVIDERS: ATTEND Plastic Surgery
DX: M72.0 Palmar fascial fibromatosis [Dupuytren] (principal); I10 Essential (primary) hypertension; R31.9 Hematuria, unspecified; R79.89 Other specified abnormal findings of blood chemistry; G40.89 Other seizures; E78.5 Hyperlipidemia, unspecified
CPT/HCPCS: 88304; J0690; J1100; J2250; J2405; J2704; J2795; J3010; J3490

== ENCOUNTER → 2019-04-12 07:24 | Day surgery (SDC) | payer MEDICARE, OTHER ==
[~2019-04-12 07:24] MED LIST changes: +Bupivacaine 0.25% SDV PF* 10 ML VIAL INJ ONE; +Dexamethasone IV* 4 MG/ML 1 ML (4 MG) IV SLOW PU ONE; +Dexamethasone IV* 4 MG/ML 1 ML (4 MG) ONE; +Ketorolac INJ* 30 MG/ML 1 ML VIAL ONE; +Midazolam* 1 MG/ML 5 ML VIAL (5 MG) ONE; +Ondansetron INJ* 2 MG/ML VIAL ONE; +Propofol* 10 MG/ML 20 ML BTL ONE; -ceFAZolin 2 GM PREMIX in ORs 2 GM/50 ML BAG IVPB ONE; +ceFAZolin 2 GM in NS PREMIX(*) 2 GM/100 ML BAG IVPB ONE; +fentaNYL* 50 MCG/ML 2 ML VIAL (100 MCG VIAL) ONE
[2019-04-12 10:49] VITALS: BP 109/68
== END | disposition home or self-care (01) ==
LOC: OR 07:24
PROVIDERS: ATTEND Plastic Surgery
DX: M72.0 Palmar fascial fibromatosis [Dupuytren] (principal); I10 Essential (primary) hypertension; Z87.442 Personal history of urinary calculi; G40.89 Other seizures; E78.5 Hyperlipidemia, unspecified
CPT/HCPCS: 88304; J0690; J1100; J1885; J2250; J2405; J2704; J3010; J3490